=== PATIENT | male | born 1950 | race Caucasian/White ===

== ENCOUNTER 2017-12-31 00:55 | Outpatient (CLI) | payer OTHER | END 2017-12-31 23:59 | disposition home or self-care (01) | LOC: DIABETIC 00:55 | PROVIDERS: ATTEND Specialist | DX: E11.65 Type 2 diabetes mellitus with hyperglycemia (principal); Z79.84 Long term (current) use of oral hypoglycemic drugs | CPT/HCPCS: G0108 ==

== ENCOUNTER 2018-02-04 02:26 | Outpatient (CLI) | payer OTHER, MEDICARE | END 2018-02-04 23:59 | disposition home or self-care (01) | LOC: DIABETIC 02:26 | PROVIDERS: ATTEND Specialist | DX: E11.65 Type 2 diabetes mellitus with hyperglycemia (principal); Z79.84 Long term (current) use of oral hypoglycemic drugs; Z79.899 Other long term (current) drug therapy | CPT/HCPCS: G0108 ==

== ENCOUNTER 2018-08-11 04:35 | Outpatient (CLI) | payer OTHER, MEDICARE | END 2018-08-11 23:59 | disposition home or self-care (01) | LOC: DIABETIC 04:35 | PROVIDERS: ATTEND Specialist | DX: E11.65 Type 2 diabetes mellitus with hyperglycemia (principal); Z79.899 Other long term (current) drug therapy | CPT/HCPCS: G0108 ==

== ENCOUNTER 2018-11-23 00:35 | Outpatient (CLI) | payer OTHER, MEDICARE | END 2018-11-23 23:59 | disposition home or self-care (01) | LOC: DIABETIC 00:35 | PROVIDERS: ATTEND Specialist | DX: E11.65 Type 2 diabetes mellitus with hyperglycemia (principal); Z79.84 Long term (current) use of oral hypoglycemic drugs; Z79.899 Other long term (current) drug therapy | CPT/HCPCS: G0108 ==

== ENCOUNTER 2019-03-12 04:30 | Outpatient (CLI) | payer OTHER, MEDICARE | END 2019-03-12 23:59 | disposition home or self-care (01) | LOC: DIABETIC 04:30 | PROVIDERS: ATTEND Specialist | DX: E11.65 Type 2 diabetes mellitus with hyperglycemia (principal) | CPT/HCPCS: G0108 ==